=== PATIENT | female | born 1985 ===

== ENCOUNTER 2017-06-30 03:33 | Emergency (ER) | payer MEDICAID ==
[2017-06-30] MEDS ORDERED: Albuterol-Ipratrop 3 mg / 0.5 (3 ml) UD ONE ×3 (03:45→04:09)
--- NOTE | 2017-06-30 03:58 | C.PDOC ---
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 No fever/chills nausea or vomiting. Speaking in complete sentences Time Seen by Provider: 06/30/17 03:58 Chief Complaint (Nursing): Shortness Of Breath History Per: Patient History/Exam Limitations: no limitations Onset/Duration Of Symptoms: Days Current Symptoms Are (Timing): Worse Initiating Event: Upper Respiratory Illness Exacerbating Factor(s): Coughing Current Respiratory Medications: See Home Med List Severity: Severe Pain Scale Rating Of: 7 Associated Symptoms: denies: Fever, Chills, Sweating Recent travel outside of the [place]: No Additional History Per: Patient Past Medical History Reviewed: Historical Data, Nursing Documentation, Vital Signs Vital Signs: Last Vital Signs Temp 97.7 F 06/30/17 05:04 Pulse 61 06/30/17 05:04 Resp 16 06/30/17 05:04 BP 113/74 06/30/17 05:04 Pulse Ox 97 06/30/17 05:34 - Medical History PMH: Asthma Family History: States: No Known Family Hx - Social History Hx Alcohol Use: No Hx Substance Use: No - Immunization History Hx Influenza Vaccination: No Hx Pneumococcal Vaccination: No Review Of Systems Constitutional: Negative for: Fever, Chills Eyes: Negative for: Redness ENT: Negative for: Throat Pain Cardiovascular: Negative for: Chest Pain Respiratory: Positive for: Shortness of Breath, Wheezing Gastrointestinal: Negative for: Nausea, Vomiting, Abdominal Pain Genitourinary: Negative for: Dysuria Musculoskeletal: Negative for: Back Pain Skin: Negative for: Rash, Lesions Neurological: Negative for: Weakness Psych: Negative for: Anxiety Physical Exam - Physical Exam Appears: Non-toxic Skin: Warm, Dry Head: Normacephalic Eye(s): bilateral: Normal Inspection Oral Mucosa: Moist Neck: Supple Chest: Symmetrical Cardiovascular: Rhythm Regular Respiratory: Decreased Breath Sounds, No Rales, No Rhonchi, Wheezing Gastrointestinal/Abdominal: Soft, No Tenderness, No Distention Back: No CVA Tenderness Extremity: Normal ROM Extremity: Bilateral: Atraumatic, Normal Color And Temperature Pulses: Left Dorsalis Pedis: Normal, Right Dorsalis Pedis: Normal Neurological/Psych: Oriented x3, Normal Speech, Normal Cognition Gait: Steady ED Course And Treatment - Laboratory Results Result Diagrams: 06/30/17 04:34 06/30/17 04:34 O2 Sat by Pulse Oximetry: 97 Pulse Ox Interpretation: Normal - Radiology CXR: Interpreted by Me, Viewed By Me CXR Interpretation: No: Infiltrates, Fracture, Pnemothorax Reevaluation Time: 05:52 Reassessment Condition: Improved Critical Care Time - Critical Care Note Total Time (in mins): 30 Documented critical care: time excludes all time spent performing seperately billable procedures. Medical Decision Making Medical Decision Making: Upon provider reevaluation patient is feeling better, is medically stable, and requires no further treatment in the ED at this time. Patient will be discharged home with Rx for prednisone and zithromax . Counseling was provided and all questions were answered regarding diagnosis and need for follow up with the referred clinic. There is agreement to discharge plan. Return if symptoms persist or worsen. Disposition Counseled Patient/Family Regarding: Studies Performed, Diagnosis, Need For Followup, Rx Given - Disposition Referrals: [facility] [Outside] [facility] [Outside] Disposition: HOME/ ROUTINE Disposition Time: 03:58 Condition: FAIR Prescriptions: Azithromycin [Zithromax Tri-Keagan] 500 mg PO DAILY #3 tablet Prednisone [Deltasone] 20 mg PO DAILY #5 tablet Instructions: Asthma (DC) Forms: [facility] (Tamazight) - Clinical Impression Clinical Impression: Asthma exacerbation
[2017-06-30] MEDS ORDERED: Sodium Chloride 0.9% 1,000 ML IV ONE (03:59)
[2017-06-30] MEDS: Albuterol-Ipratrop 3 mg / 0.5 (3 ml) UD IH SCH ×3 (04:00→04:30)
[2017-06-30 04:39] LABS: MEAN CORPUSCULAR HGB CONC 33.3 g/dL (33.0-37.0)
[2017-06-30 04:42] LABS: BASO # 0.1 K/uL (0.0-0.2); BASO % 0.6 % (0.0-2.0); EOS # 0.8 K/uL (0.0-0.7); EOS % 6.7 % (0.0-4.0); LYMPH # 3.8 K/uL (1.0-4.3); LYMPH % 30.6 % (20.0-40.0); MEAN CELL VOLUME 88.1 fL (81.0-99.0); MEAN CORPUSCULAR HEMOGLOBIN 29.4 pg (27.0-31.0); MEAN PLATELET VOLUME 8.7 fL (7.2-11.7); MONO # 0.8 K/uL (0.0-0.8); MONO % 6.6 % (0.0-10.0); RED CELL DISTRIBUTION WIDTH 14.4 % (11.5-14.5); WHITE BLOOD COUNT 12.4 K/uL (4.8-10.8)
[2017-06-30 04:44] LABS: CHLORIDE 104 mmol/L (98-107)
[2017-06-30 04:45] LABS: POTASSIUM 3.3 mmol/L (3.6-5.2); SODIUM 142 mmol/L (132-148)
[2017-06-30 04:47] LABS: ALB/GLOB RATIO 1.1 (1.0-2.1); ALKALINE PHOSPHATASE 46 U/L (38-126); ALT/SGPT 35 U/L (9-52); AST/SGOT 20 U/L (14-36); BILIRUBIN,TOTAL 0.4 mg/dL (0.2-1.3); BLOOD UREA NITROGEN 20 mg/dL (7-17); CARBON DIOXIDE 27 mmol/L (22-30); GFR AFRICAN-AMERICAN > 60; GLUCOSE,RANDOM 121 mg/dL (65-105); TOTAL PROTEIN 6.6 g/dL (6.3-8.3)
[2017-06-30 04:48] LABS: CALCIUM 8.7 mg/dl (8.6-10.4)
[2017-06-30 04:55] LABS: URINE BACTERIA RARE (<OCC); URINE BILIRUBIN NEGATIVE (NEGATIVE); URINE BLOOD NEGATIVE (NEGATIVE); URINE COLOR Red (YELLOW); URINE GLUCOSE (UA) NORMAL (Normal); URINE KETONE NEGATIVE (NEGATIVE); URINE LEUKOCYTE ESTERASE NEG Leu/uL (Negative); URINE PROTEIN NEGATIVE (NEGATIVE); URINE UROBILINOGEN NORMAL mg/dL (0.2-1.0); WBC URINE < 1 /hpf (0-5)
[2017-06-30 05:05] VITALS: RESP 16
[2017-06-30 06:10] VITALS: BP 106/69; PULSE 99; TEMP 98.4; O2SAT 96
--- NOTE | 2017-06-30 15:11 | RAD ---
PROCEDURE: CHEST RADIOGRAPH, 1 VIEW HISTORY: sob COMPARISON: None available. FINDINGS: LUNGS: Clear. PLEURA: No pneumothorax or pleural fluid seen. CARDIOVASCULAR: Normal. OSSEOUS STRUCTURES: No significant abnormalities. VISUALIZED UPPER ABDOMEN: Normal. OTHER FINDINGS: None. IMPRESSION: No active disease.
== END 2017-06-30 06:14 | disposition home or self-care (01) ==
LOC: C.ER 03:33
DX: J45.901 Unspecified asthma with (acute) exacerbation (principal)
CPT/HCPCS: 71010; 80053; 81001; 84703; 85025; 96361; 96374; 99284; J2930; J7040

== ENCOUNTER 2017-09-03 06:43 | Emergency (ER) | payer MEDICAID ==
[2017-09-03] MEDS ORDERED: Albuterol-Ipratrop 3 mg / 0.5 (3 ml) UD ONE ×3 (06:54→06:55)
[2017-09-03] MEDS ORDERED: Albuterol-Ipratrop 3 mg / 0.5 (3 ml) UD INH SCH (07:00)
--- NOTE | 2017-09-03 07:54 | C.PDOC ---
History Of Present Illness 32 Y/O FEMALE PRESENTS TO ED WITH C/O ASTHMA EXACERBATION FOR 3-4 DAYS. PT STATES NORMALLY USES PUMP 1X PER DAY. PT NOTES SHE HAS BEEN USING PUMP AND MACHINE SEVERAL TIMES PER DAY WITH MINIMAL RELIEF. STATES SIMILAOR SYMPTOMS WITH WEATHER CHANGE. DENIES FEVER. C/O CHEST TIGHTNESS, CONGESTION. EXAM SPEAKING IN COMPLETE SENTENCES LUNGS: S/P DUONEB X 3 WITH PERSISTENT RETRACTIONS, AUDIBLE WHEEZING, Time Seen by Provider: 09/03/17 07:31 Chief Complaint (Nursing): Shortness Of Breath History Per: Patient History/Exam Limitations: no limitations Onset/Duration Of Symptoms: Days Current Symptoms Are (Timing): Still Present Associated Symptoms: denies: Fever, Chest Pain, URI Recent travel outside of the [place]: No Past Medical History Reviewed: Historical Data, Nursing Documentation, Vital Signs Vital Signs: Last Vital Signs Temp 97.4 F L 09/03/17 06:52 Pulse 88 09/03/17 06:52 Resp 24 09/03/17 06:52 BP 138/78 09/03/17 06:52 Pulse Ox 96 09/03/17 09:01 - Medical History PMH: Asthma Family History: States: Unknown Family Hx - Social History Hx Alcohol Use: No Hx Substance Use: No - Immunization History Hx Influenza Vaccination: No Hx Pneumococcal Vaccination: No Review Of Systems Except As Marked, All Systems Reviewed And Found Negative. Constitutional: Negative for: Fever, Chills Cardiovascular: Negative for: Chest Pain Respiratory: Positive for: Wheezing Gastrointestinal: Negative for: Nausea, Vomiting, Abdominal Pain Skin: Negative for: Rash Neurological: Negative for: Headache, Dizziness Physical Exam - Physical Exam Appears: Non-toxic, No Acute Distress, Other (SPEAKING IN COMPLETE SENTENCES) Skin: Normal Color, Warm, Dry Head: Atraumatic, Normacephalic Oral Mucosa: Moist Chest: Symmetrical Cardiovascular: Rhythm Regular Respiratory: Accessory Muscle Use, No Rales, No Rhonchi, Wheezing (AUDIBLE WHEEZING) Gastrointestinal/Abdominal: Soft, No Tenderness, No Guarding, No Rebound Back: Normal Inspection Extremity: Normal ROM, No Pedal Edema, Capillary Refill (< 2 SEC.) Neurological/Psych: Oriented x3, Normal Speech, Normal Cognition ED Course And Treatment O2 Sat by Pulse Oximetry: 96 (RA) Pulse Ox Interpretation: Normal - Radiology CXR: Interpreted by Me CXR Interpretation: Yes: No Acute Disease Progress - Re-Evaluation Re-evaluation Note: 09/03/17 07:59 CXR, PREDNISONE ORDERED 09/03/17 09:26 FEELS BETTER. REQUESTS MED REFILL, DC HOME - Data Reviewed Data Reviewed: Diagnostic imaging, Old records Disposition Counseled Patient/Family Regarding: Studies Performed, Diagnosis, Need For Followup, Rx Given - Disposition Referrals: YOUR,PMD [Other] Disposition: HOME/ ROUTINE Disposition Time: 09:27 Condition: IMPROVED Prescriptions: Albuterol 0.083% [Albuterol Sulfate 3 Ml] 3 ml IH Q4 #30 neb Albuterol HFA [Ventolin HFA 90 mcg/actuation (8 g)] 1 puff IH Q4 #1 inhaler predniSONE [Prednisone] 60 mg PO DAILY #12 tab Forms: [employer] (Swedish) - Clinical Impression Clinical Impression: Asthma exacerbation - Scribe Statement The provider has reviewed the documentation as recorded by the Scribe SM All medical record entries made by the Scribe were at my direction and personally dictated by me. I have reviewed the chart and agree that the record accurately reflects my personal performance of the history, physical exam, medical decision making, and the department course for this patient. I have also personally directed, reviewed, and agree with the discharge instructions and disposition.
--- NOTE | 2017-09-03 08:11 | RAD ---
HISTORY: WHEEZE COMPARISON: 06/30/2017 TECHNIQUE: Chest PA and lateral FINDINGS: LUNGS: No active pulmonary disease. PLEURA: No significant pleural effusion identified. No pneumothorax apparent. CARDIOVASCULAR: Normal. OSSEOUS STRUCTURES: No significant abnormalities. VISUALIZED UPPER ABDOMEN: Normal. OTHER FINDINGS: None. IMPRESSION: No active disease.
[2017-09-03 09:43] VITALS: BP 131/82; PULSE 89; RESP 19; TEMP 98.6; O2SAT 98
== END 2017-09-03 09:42 | disposition home or self-care (01) ==
LOC: C.ER 06:43
DX: J45.901 Unspecified asthma with (acute) exacerbation (principal); Z87.891 Personal history of nicotine dependence

== ENCOUNTER 2017-11-07 05:49 | Emergency (ER) | payer MEDICAID ==
[~2017-11-07 05:49] MED LIST: Albuterol-Ipratrop 3 mg / 0.5 (3 ml) UD INH STA
[2017-11-07] MEDS ORDERED: Albuterol-Ipratrop 3 mg / 0.5 (3 ml) UD ONE ×2 (05:53→06:36)
[2017-11-07] MEDS ORDERED: Albuterol-Ipratrop 3 mg / 0.5 (3 ml) UD INH STA ×4 (06:00→06:46)
[2017-11-07 06:06] VITALS: BMI 44.9
--- NOTE | 2017-11-07 06:18 | C.PDOC ---
History Of Present Illness Patient is a 32 y/o female who presents to the ED with a complaint of asthma exacerbation. Patient reports to have been taking albuterol at home with no improvement; last steroid use a few months ago. Admits to quit smoking 5 years ago. Denies ever being intubated. Patient notes change in weather may be cause of symptoms. No other physical complaints at this time. Time Seen by Provider: 11/07/17 06:04 Chief Complaint (Nursing): Shortness Of Breath History Per: Patient History/Exam Limitations: no limitations Onset/Duration Of Symptoms: Days Current Symptoms Are (Timing): Still Present Initiating Event: Upper Respiratory Illness Current Respiratory Medications: Albuterol (without improvement) Associated Symptoms: Chest Pain Recent travel outside of the [place]: No Past Medical History Reviewed: Historical Data, Nursing Documentation, Vital Signs Vital Signs: Last Vital Signs Temp 97.9 F 11/07/17 05:57 Pulse 106 H 11/07/17 06:53 Resp 28 H 11/07/17 06:53 BP 128/62 11/07/17 06:53 Pulse Ox 96 11/07/17 06:53 - Medical History PMH: Asthma Surgical History: No Surg Hx Family History: States: Unknown Family Hx - Social History Hx Tobacco Use: Yes (quit smoking 5 years ago) Hx Alcohol Use: No Hx Substance Use: No - Immunization History Hx Influenza Vaccination: No Hx Pneumococcal Vaccination: No Review Of Systems Constitutional: Negative for: Fever Eyes: Negative for: Pain ENT: Positive for: Ear Pain. Negative for: Ear Discharge Cardiovascular: Negative for: Chest Pain Respiratory: Positive for: Cough, Shortness of Breath, Other (asthma exacerbation). Negative for: SOB with Excertion, Pleuritic Pain, Sputum Gastrointestinal: Negative for: Nausea, Vomiting, Abdominal Pain, Diarrhea Genitourinary: Negative for: Dysuria Musculoskeletal: Negative for: Neck Pain Neurological: Negative for: Weakness, Numbness Psych: Negative for: Anxiety, Depression Physical Exam - Physical Exam Appears: Well, Non-toxic, No Acute Distress Skin: Normal Color, Warm, Dry Head: Atraumatic, Normacephalic Oral Mucosa: Moist Tongue: Normal Appearing Lips: Normal Appearing Gingiva: Normal Appearing Throat: Normal Neck: Normal Chest: Symmetrical Cardiovascular: Rhythm Regular, No Murmur Respiratory: No Accessory Muscle Use, No Rales, No Rhonchi, Wheezing (coarse, expiratory ), Other (speaking in complete sentences) Neurological/Psych: Oriented x3, Normal Speech, Normal Cognition ED Course And Treatment ECG: Interpreted By Me, Viewed By Me ECG Rhythm: Sinus Tachycardia Rate From EC O2 Sat by Pulse Oximetry: 99 (room air) Pulse Ox Interpretation: Normal Progress Note: Duoneb, prednisone, and nebulizer treatment administered. Medical Decision Making Medical Decision Making: acute moderate asthma exacerbation with diffuse expiratory wheezing. PF 350. predisone 60 mg po ordered. Multiple duonebs. Disposition - Disposition Disposition Time: 07:23 Condition: FAIR Forms: [employer] (Macedonian) - Clinical Impression Clinical Impression: Dyspnea, Respiratory distress, Asthma - Scribe Statement The provider has reviewed the documentation as recorded by the Scribe Little Amin All medical record entries made by the Scribe were at my direction and personally dictated by me. I have reviewed the chart and agree that the record accurately reflects my personal performance of the history, physical exam, medical decision making, and the department course for this patient. I have also personally directed, reviewed, and agree with the discharge instructions and disposition.
[2017-11-07 06:54] VITALS: PULSE 106
[2017-11-07] MEDS ORDERED: Albuterol 0.083% Inhal Sol (2.5 mg/3 mL) UD IH STA (08:12)
[2017-11-07] MEDS ORDERED: Albuterol 0.083% Inhal Sol (2.5 mg/3 mL) UD ONE (08:19)
[2017-11-07 09:09] VITALS: BP 122/57; RESP 22; TEMP 98.9; O2SAT 97
== END 2017-11-07 09:31 | disposition home or self-care (01) ==
LOC: C.ER 05:49
DX: J45.901 Unspecified asthma with (acute) exacerbation (principal); R06.03 Acute respiratory distress; Z87.891 Personal history of nicotine dependence

== ENCOUNTER 2017-11-29 00:06 | Emergency (ER) | payer MEDICAID ==
[2017-11-29 00:06] VITALS: BMI 44.9
[2017-11-29 00:22] VITALS: TEMP 98.3
[2017-11-29] MEDS: Albuterol-Ipratrop 3 mg / 0.5 (3 ml) UD IH SCH ×2 (01:15→01:30)
--- NOTE | 2017-11-29 02:29 | C.PDOC ---
History Of Present Illness 32 year old female presents to the ER after she was bathing her dog with a new shampoo and the aroma of it triggered her asthma, she states she was unable to breathe and called 911. Patient was given IV solumedrol and mag sulfate, brethine SQ and 1 duoneb by EMS. On arrival, patient reports some improvement of symptoms but still feels some chest tightness. Denies fever, chills, or chest pain. Time Seen by Provider: 11/29/17 00:49 Chief Complaint (Nursing): Respiratory Distress History Per: Patient History/Exam Limitations: no limitations Onset/Duration Of Symptoms: Hrs Current Symptoms Are (Timing): Still Present Initiating Event: Other (Exposure to new aroma) Quality: Tightness Current Respiratory Medications: None Associated Symptoms: denies: Fever, Chills, Chest Pain Recent travel outside of the [place]: No Past Medical History Reviewed: Historical Data, Nursing Documentation, Vital Signs Vital Signs: Last Vital Signs Temp 98.3 F 11/29/17 00:12 Pulse 90 11/29/17 02:51 Resp 16 11/29/17 02:51 BP 115/72 11/29/17 02:51 Pulse Ox 100 11/29/17 05:23 - Medical History PMH: Asthma Family History: States: Unknown Family Hx - Social History Hx Tobacco Use: Yes (quit smoking 5 years ago) Hx Alcohol Use: Yes Hx Substance Use: No - Immunization History Hx Influenza Vaccination: No Hx Pneumococcal Vaccination: No Review Of Systems Constitutional: Negative for: Fever, Chills Cardiovascular: Negative for: Chest Pain, Palpitations Respiratory: Positive for: Shortness of Breath, Other (Chest tightness) Physical Exam - Physical Exam Appears: Non-toxic, No Acute Distress Skin: Normal Color, Warm, Dry Head: Atraumatic, Normacephalic Eye(s): bilateral: Normal Inspection Oral Mucosa: Moist Throat: Normal, No Erythema, No Exudate Neck: Normal, Supple Chest: Symmetrical, No Tenderness Cardiovascular: Rhythm Regular Respiratory: No Rales, No Rhonchi, Wheezing (Expiratory), Other (Minimally decreased breath sounds) Neurological/Psych: Oriented x3, Normal Speech ED Course And Treatment O2 Sat by Pulse Oximetry: 100 (Room air) Pulse Ox Interpretation: Normal Progress Note: Duoneb administered. On reevaluation, patient is resting comfortably in no distress and reports improvement of symptoms; she is no longer wheezing and feels comfortable going home. Will discharge home with Rx and instructions to follow up with PMD. Disposition Counseled Patient/Family Regarding: Diagnosis, Need For Followup, Rx Given - Disposition Disposition: HOME/ ROUTINE Disposition Time: 02:26 Condition: STABLE Additional Instructions: Please continue albuterol inhaler as needed for difficulty breathing Follow up jero PMD Return to ER if worse Prescriptions: Albuterol HFA [Ventolin HFA 90 mcg/actuation (8 g)] 2 puff IH [id number] #1 inhaler predniSONE [Prednisone] 40 mg PO DAILY #8 tab Instructions: Bronchospasm (ED) Forms: [employer] (Cuban) - Clinical Impression Clinical Impression: Exacerbation of asthma, Bronchospasm, acute - PA / WELLNESS MANAGER / Resident Statement MD/DO has reviewed & agrees with the documentation as recorded. - Scribe Statement The provider has reviewed the documentation as recorded by the Scribe Carlos Pfeiffer All medical record entries made by the Scribe were at my direction and personally dictated by me. I have reviewed the chart and agree that the record accurately reflects my personal performance of the history, physical exam, medical decision making, and the department course for this patient. I have also personally directed, reviewed, and agree with the discharge instructions and disposition.
[2017-11-29 02:53] VITALS: BP 115/72; PULSE 90; RESP 16
[2017-11-29 05:18] VITALS: O2SAT 100
== END 2017-11-29 02:52 | disposition home or self-care (01) ==
LOC: C.ER 00:06
DX: J45.901 Unspecified asthma with (acute) exacerbation (principal); J98.01 Acute bronchospasm; Z87.891 Personal history of nicotine dependence

== ENCOUNTER 2018-02-05 21:31 | Inpatient (IN) | payer MEDICAID ==
[2018-02-05 21:31] VITALS: BMI 44.9
[2018-02-05] MEDS ORDERED: Albuterol-Ipratrop 3 mg / 0.5 (3 ml) UD ONE ×3 (21:36→23:31)
[2018-02-05] MEDS ORDERED: Albuterol-Ipratrop 3 mg / 0.5 (3 ml) UD INH STA ×3 (21:47→23:32)
--- NOTE | 2018-02-05 21:51 | C.PDOC ---
History Of Present Illness 32 year old female is brought to the ED by ACLS for evaluation of worsening asthma that started earlier today. Patient was given medications and breathing treatments en route [employer]. Patient denies fever, chills, CP, nausea, vomit, diarrhea. Time Seen by Provider: 02/05/18 21:50 Chief Complaint (Nursing): Respiratory Distress History Per: Patient, EMS History/Exam Limitations: no limitations Onset/Duration Of Symptoms: Days Current Symptoms Are (Timing): Gone Initiating Event: Upper Respiratory Illness Quality: Tightness Current Respiratory Medications: See Home Med List Recent travel outside of the [place]: No Additional History Per: Patient, EMS Past Medical History Reviewed: Historical Data, Nursing Documentation, Vital Signs Vital Signs: Last Vital Signs Temp 98 F 02/05/18 21:35 Pulse 102 H 02/05/18 23:46 Resp 22 02/05/18 23:46 BP 153/78 H 02/05/18 21:35 Pulse Ox 100 02/05/18 23:46 - Medical History PMH: Asthma Surgical History: No Surg Hx Family History: States: Unknown Family Hx - Social History Hx Tobacco Use: Yes (quit smoking 5 years ago) Hx Alcohol Use: Yes Hx Substance Use: No - Immunization History Hx Influenza Vaccination: No Hx Pneumococcal Vaccination: No Review Of Systems Constitutional: Negative for: Fever, Chills Cardiovascular: Negative for: Chest Pain Respiratory: Positive for: Shortness of Breath, Wheezing. Negative for: Cough Gastrointestinal: Negative for: Nausea, Vomiting, Abdominal Pain Skin: Negative for: Rash Neurological: Negative for: Weakness, Numbness Physical Exam - Physical Exam Appears: Non-toxic, No Acute Distress Skin: Normal Color, Warm, Dry Head: Atraumatic, Normacephalic Eye(s): bilateral: Normal Inspection Nose: No Discharge Oral Mucosa: Moist Throat: Normal, No Erythema, No Exudate Neck: Normal ROM, Supple Chest: Symmetrical Cardiovascular: Rhythm Regular, No Murmur Respiratory: Rhonchi (B/L), Wheezing (B/L), Other (Dyspnic) Gastrointestinal/Abdominal: Soft, No Tenderness, No Guarding, No Rebound Extremity: Normal ROM, No Tenderness, No Swelling Neurological/Psych: Oriented x3 ED Course And Treatment - Laboratory Results Result Diagrams: 02/05/18 22:00 02/05/18 22:00 ECG: Interpreted By Me, Viewed By Me ECG Rhythm: Sinus Tachycardia ECG Interpretation: No Acute Changes Interpretation Of ECG: sinus tachycardia, possible LAE, bordereline tacings Rate From EC O2 Sat by Pulse Oximetry: 99 (On RA) Pulse Ox Interpretation: Normal - Radiology CXR: Interpreted by Me, Viewed By Me CXR Interpretation: Yes: Other (possible infiltrate-Right lower lung field.) Medical Decision Making Medical Decision Making: Impression: asthma exacerbation Plan: * EKG * Labs * CXR * Duoneb 3 ml INH Disposition Discussed With Dr.: Matthew Oliveira Jr. Doctor Will See Patient In The: Hospital Counseled Patient/Family Regarding: Diagnosis - Disposition Disposition: HOSPITALIZED Disposition Time: 02:10 Condition: STABLE Forms: [facility] (Lithuanian) - POA Present On Arrival: None - Clinical Impression Clinical Impression: Asthma exacerbation, Pneumonia - Scribe Statement The provider has reviewed the documentation as recorded by the Scribe Gilbert Lopes All medical record entries made by the Scribe were at my direction and personally dictated by me. I have reviewed the chart and agree that the record accurately reflects my personal performance of the history, physical exam, medical decision making, and the department course for this patient. I have also personally directed, reviewed, and agree with the discharge instructions and disposition.
[2018-02-05 22:02] LABS: BASO # 0.1 K/uL (0.0-0.2); BASO % 0.7 % (0.0-2.0); EOS # 0.7 K/uL (0.0-0.7); HEMOGLOBIN 13.8 g/dL (11.0-16.0); LYMPH # 5.1 K/uL (1.0-4.3); LYMPH % 34.1 % (20.0-40.0); MEAN CORPUSCULAR HEMOGLOBIN 29.5 pg (27.0-31.0); MEAN CORPUSCULAR HGB CONC 32.4 g/dL (33.0-37.0); MEAN PLATELET VOLUME 8.2 fL (7.2-11.7); MONO # 0.9 K/uL (0.0-0.8); NEUT # 8.1 K/uL (1.8-7.0); NEUT % 54.2 % (50.0-75.0); NRBC % 0.1 % (0.0-2.0); RBC 4.67 Mil/uL (3.80-5.20); RED CELL DISTRIBUTION WIDTH 13.9 % (11.5-14.5)
[2018-02-05 22:04] LABS: MEAN CELL VOLUME 91.2 fL (81.0-99.0)
[2018-02-05 22:16] LABS: ALBUMIN 3.8 g/dL (3.5-5.0); ALT/SGPT 29 U/L (9-52); AST/SGOT 25 U/L (14-36); BLOOD UREA NITROGEN 12 mg/dL (7-17); CALCIUM 8.1 mg/dl (8.6-10.4); GFR AFRICAN-AMERICAN > 60; GFR NON-AFRICAN AMERICAN > 60
[2018-02-05 22:43] LABS: B-TYPE NATRIURETIC PEPTIDE 35.1 pg/mL (0-450)
[2018-02-05] MEDS ORDERED: Azithromycin 500 MG in Sodium Chloride 0.9% 250 ML IVPB STA (22:44)
[2018-02-05] MEDS ORDERED: cefTRIAXone IV 1 gm in Dextros 50 ML IVPB ONE ×2 (22:45→23:09)
[2018-02-06] MEDS ORDERED: (Novolin R) Insulin Human Regular 100 units/ml vial IV STA (00:46)
[2018-02-06] MEDS ORDERED: Iodixanol 320 MG/ML 100 ML BOTTLE IV ONE (00:49)
--- NOTE | 2018-02-06 02:03 | CT ---
EXAM: CT Angiography Chest With Intravenous Contrast EXAM DATE/TIME: 02/06/2018 1:07 AM CLINICAL HISTORY: 32 years old, female; Pain; Chest pain; Patient HX: Ho. Asthma TECHNIQUE: Axial computed tomographic angiography images of the chest with intravenous contrast using pulmonary embolism protocol. All CT scans at this facility use one or more dose reduction techniques, viz.: automated exposure control; ma/kV adjustment per patient size (including targeted exams where dose is matched to indication; i.e. head); or iterative reconstruction technique. MIP reconstructed images were created and reviewed. Coronal and sagittal reformatted images were created and reviewed. CONTRAST: 100 mL of [id number] administered intravenously. COMPARISON: CT - ANGIO CHEST PE PROTOCOL 2018-02-05 23:42 FINDINGS: No pulmonary emboli identified however bolus findings suboptimal significantly limiting evaluation.. No aortic dissection or aneurysm. No pleural or pericardial effussions. No pulmonary consolidation. IMPRESSION: No acute findings however please note bolus timing is suboptimal for evaluation of the pulmonary arteries.
--- NOTE | 2018-02-06 02:21 | CP.PCM.HP ---
History of Present Illness - History of Present Illness History of Present Illness: CC: worsening asthma/ SOB HPI: Patient is a 32 y/o F with PMHx of asthma who presents today for shortness of breath and worsening asthma. About 3 days ago patient said she started getting congested with yellow sputum. Patient had no fevers or sore throat. Patient had to increase her use of Albuterol nebulizer treatments. Today patient used her Ventolin inhaler 9 times and could not get full relief so she decided to come to the ED. Patient has never been intubated for asthma. Patient uses her inhaler normally every day and coughs most nights. Patient denies any chest pain, abdominal pain, N/V, C/D. PMD: Dr. Koch Allergies: NKDA PMHx:asthma Psurg: IUD Famhx: Mom: HTN, Grandmother: Alzheimer's Psocial: stopped smoking cigarettes 7 years ago, smoked 1/2ppd for 10 years, drinks a few drinks every few months, stopped smoking marijuana 3 years ago lives with 2 roommates. works at a [employer] Present on Admission - Present on Admission Any Indicators Present on Admission: No History of DVT/PE: No History of Uncontrolled Diabetes: No Urinary Catheter: No Decubitus Ulcer Present: No Review of Systems - Constitutional Constitutional: absent: Chills, Fever - EENT Eyes: absent: Blurred Vision Nose/Mouth/Throat: Nasal Congestion, Nasal Discharge. absent: Sore Throat - Cardiovascular Cardiovascular: Dyspnea. absent: Chest Pain - Respiratory Respiratory: Cough, Wheezing, Excessive Mucous Production, Change in Mucous Color - Gastrointestinal Gastrointestinal: absent: Abdominal Pain, Constipation, Diarrhea, Nausea, Vomiting - Genitourinary Genitourinary: absent: Difficulty Urinating, Dysuria - Integumentary Integumentary: absent: Rash Past Patient History - Past Social History Smoking Status: Former Smoker - CARDIAC Hx Cardiac Disorders: No - PULMONARY Hx Asthma: Yes - PSYCHIATRIC Hx Substance Use: No - SURGICAL HISTORY Hx Surgeries: No - ANESTHESIA Hx Anesthesia: No Meds Allergies/Adverse Reactions: Allergies Allergy/AdvReac Type Severity Reaction Status Date / Time No Known Allergies Allergy Verified 11/29/17 00:22 Physical Exam - Constitutional Appears: Non-toxic, No Acute Distress - Head Exam Head Exam: ATRAUMATIC, NORMAL INSPECTION, NORMOCEPHALIC - Eye Exam Eye Exam: EOMI, Normal appearance - ENT Exam ENT Exam: Mucous Membranes Moist - Respiratory Exam Respiratory Exam: Wheezes - Cardiovascular Exam Cardiovascular Exam: Tachycardia, REGULAR RHYTHM, +S1, +S2 - GI/Abdominal Exam GI & Abdominal Exam: Normal Bowel Sounds, Soft. absent: Tenderness - Extremities Exam Extremities exam: Positive for: normal inspection. Negative for: pedal edema - Back Exam Back exam: NORMAL INSPECTION - Neurological Exam Neurological exam: Alert, Oriented x3 - Psychiatric Exam Psychiatric exam: Normal Affect, Normal Mood - Skin Skin Exam: Intact, Normal Color, Warm Results - Vital Signs Recent Vital Signs: Last Vital Signs Temp 98 F 02/05/18 21:35 Pulse 102 H 02/05/18 23:46 Resp 22 02/05/18 23:46 BP 153/78 H 02/05/18 21:35 Pulse Ox 99 02/06/18 02:11 - Labs Result Diagrams: 02/05/18 22:00 02/05/18 22:00 Labs: Laboratory Results - last 24 hr 02/05/18 02/05/18 02/05/18 22:00 22:00 22:00 WBC 15.0 H RBC 4.67 Hgb 13.8 Hct 42.6 MCV 91.2 D MCH 29.5 MCHC 32.4 L RDW 13.9 Plt Count 311 MPV 8.2 Neut % (Auto) 54.2 Lymph % (Auto) 34.1 [place] % (Auto) 6.0 Eos % (Auto) 5.0 H Baso % (Auto) 0.7 Neut # (Auto) 8.1 H Lymph # (Auto) 5.1 H [place] # (Auto) 0.9 H Eos # (Auto) 0.7 Baso # (Auto) 0.1 D-Dimer, Quantitative 313 H Sodium 140 Potassium 3.4 L Chloride 104 Carbon Dioxide 24 Anion Gap 16 BUN 12 Creatinine 1.0 Est GFR ( Amer) > 60 Est GFR (Non-Af Amer) > 60 Random Glucose 133 H Calcium 8.1 L Total Bilirubin 0.4 AST 25 ALT 29 Alkaline Phosphatase 43 NT-Pro-B Natriuret Pep 35.1 Total Protein 7.5 Albumin 3.8 Globulin 3.7 Albumin/Globulin Ratio 1.0 Assessment & Plan - Assessment and Plan (Free Text) Assessment: Asthma exacerbation CTA: no acute findings however please note bolus timing is suboptimal for evaluation of the pulmonary arteries. D-Dimer 313 Duonebs q4h prn Solumedrol 40mg q8h Leukocytosis WBC:15 possibly secondary to Left lower lobe pneumonia f/u official cxray read Ceftriaxone 1gm daily Azithromycin 500mg daily Prophylaxis Pepcid 20mg po daily SCDs
[2018-02-06] MEDS ORDERED: Albuterol-Ipratrop 3 mg / 0.5 (3 ml) UD INH PRN (02:52)
[2018-02-06 03:07] LABS: GRANULAR CAST 5 /lpf (0-1); SQUAMOUS EPITHIAL 46 /hpf (0-5); URINE BACTERIA FEW (<OCC); URINE BILIRUBIN NEGATIVE (NEGATIVE); URINE BLOOD NEGATIVE (NEGATIVE); URINE CLARITY Turbid (Clear); URINE COLOR Yellow (YELLOW); URINE GLUCOSE (UA) NORMAL (Normal); URINE LEUKOCYTE ESTERASE NEG Leu/uL (Negative); URINE PROTEIN 1+ mg/dL (NEGATIVE); URINE UROBILINOGEN NORMAL mg/dL (0.2-1.0)
[2018-02-06 03:11] LABS: HCG,QUALITATIVE URINE NEGATIVE (NEGATIVE)
[2018-02-06] MEDS ORDERED: MethylPREDNISolone 40 mg Vial ONE (03:30)
[2018-02-06] MEDS: MethylPREDNISolone 40 mg Vial IVP SCH ×4 (03:39→19:00)
[2018-02-06] MEDS ORDERED: Potassium Chloride 20 mEq ER Tab PO ONE (03:57)
[2018-02-06 04:15] LABS: BASO % 0.1 % (0.0-2.0); EOS % 0.1 % (0.0-4.0); HEMOGLOBIN 13.7 g/dL (11.0-16.0); LYMPH # 0.7 K/uL (1.0-4.3); LYMPH % 4.4 % (20.0-40.0); MEAN CELL VOLUME 91.6 fL (81.0-99.0); MEAN CORPUSCULAR HEMOGLOBIN 30.4 pg (27.0-31.0); MEAN CORPUSCULAR HGB CONC 33.2 g/dL (33.0-37.0); MEAN PLATELET VOLUME 8.8 fL (7.2-11.7); MONO # 0.1 K/uL (0.0-0.8); MONO % 0.6 % (0.0-10.0); NEUT # 14.4 K/uL (1.8-7.0); NEUT % 94.8 % (50.0-75.0); PLATELET COUNT 277 K/uL (130-400); RBC 4.48 Mil/uL (3.80-5.20); RED CELL DISTRIBUTION WIDTH 13.9 % (11.5-14.5); WHITE BLOOD COUNT 15.2 K/uL (4.8-10.8)
[2018-02-06 04:26] LABS: BLOOD UREA NITROGEN 12 mg/dL (7-17); GFR AFRICAN-AMERICAN > 60; GFR NON-AFRICAN AMERICAN > 60
[2018-02-06 04:27] LABS: ALB/GLOB RATIO 1.2 (1.0-2.1); ALBUMIN 3.8 g/dL (3.5-5.0); ALT/SGPT 21 U/L (9-52); AST/SGOT 25 U/L (14-36); CALCIUM 7.5 mg/dl (8.6-10.4)
[2018-02-06 05:09] VITALS: RESP 20
[2018-02-06 06:23] LABS: LYMPHOCYTE 7 % (20-40); MONOCYTE 2 % (0-10); NEUTROPHIL 91 % (50-75); PLATELET ESTIMATE NORMAL (NORMAL); TOTAL CELLS COUNTED 100
--- NOTE | 2018-02-06 07:57 | CP.PCM.PN ---
<DavidKristi - Last Filed: 02/06/18 16:34> Subjective - Date & Time of Evaluation Date of Evaluation: 02/06/18 Time of Evaluation: 07:56 - Subjective Subjective: Progress note for Dr. Oliveira Patient seen and examined at bedside. Patient states she feels better than yesterday. Patient still has a cough and states that she did not ask for breathing treatment this morning. Objective - Vital Signs/Intake and Output Vital Signs (last 24 hours): Temp Pulse Resp BP Pulse Ox 98.3 F 20 L 20 132/67 100 02/06/18 03:50 02/06/18 04:00 02/06/18 04:00 02/06/18 02:32 02/06/18 04:00 Intake and Output: 02/06/18 02/06/18 06:59 18:59 Intake Total 300 Balance 300 - Medications Medications: Current Medications Albuterol/Ipratropium (Duoneb 3 Mg/0.5 Mg (3 Ml) Ud) 3 ml INH RQ4 PRN PRN Reason: Wheezing Famotidine (Pepcid) 20 mg PO DAILY MARY Azithromycin (Zithromax 500mg In Ns Addvantage) 500 mg in 250 mls @ 167 mls/hr IVPB Q24H MARY PRN Reason: Protocol Ceftriaxone Sodium (Rocephin Iv 1 Gm Duplex) 50 mls @ 100 mls/hr IVPB DAILY MARY PRN Reason: Protocol Methylprednisolone (Solu-Medrol) 40 mg IVP Q8H MARY Last Admin: 02/06/18 03:39 Dose: 40 mg - Labs Labs: 02/06/18 04:12 02/06/18 03:38 - Constitutional Appears: Non-toxic, No Acute Distress - Head Exam Head Exam: ATRAUMATIC, NORMAL INSPECTION, NORMOCEPHALIC - Eye Exam Eye Exam: EOMI, Normal appearance Pupil Exam: NORMAL ACCOMODATION, PERRL - ENT Exam ENT Exam: Mucous Membranes Moist, Normal Exam - Neck Exam Neck Exam: Full ROM, Normal Inspection - Respiratory Exam Respiratory Exam: Clear to Ausculation Bilateral, NORMAL BREATHING PATTERN. absent: Decreased Breath Sounds, Respiratory Distress - Cardiovascular Exam Cardiovascular Exam: REGULAR RHYTHM, +S1, +S2 - GI/Abdominal Exam GI & Abdominal Exam: Soft, Normal Bowel Sounds. absent: Tenderness - Extremities Exam Extremities Exam: Full ROM, Normal Inspection. absent: Pedal Edema - Back Exam Back Exam: Full ROM, NORMAL INSPECTION - Neurological Exam Neurological Exam: Alert, Awake, CN II-XII Intact, Oriented x3 - Psychiatric Exam Psychiatric exam: Normal Affect - Skin Skin Exam: Dry, Intact, Normal Color, Warm Assessment and Plan - Assessment and Plan (Free Text) Assessment: 32F with past medical history of asthma presents with shortness of breath with productive cough. Asthma exacerbation CTA: no acute findings however please note bolus timing is suboptimal for evaluation of the pulmonary arteries. D-Dimer 313 Duonebs q4h prn, duonebs q4h MARY alternating Solumedrol 40mg q8h Leukocytosis WBC:15.2 possibly secondary to Left lower lobe pneumonia CXR Ceftriaxone 1gm daily Azithromycin 500mg daily Prophylaxis Pepcid 20mg po daily SCDs headache: reglan 10 mv IV once pain: tylenol 650Q6H Kristi Hernandez DO PGY1 <Matthew Oliveira Jr. - Last Filed: 02/10/18 15:47> Objective - Vital Signs/Intake and Output Vital Signs (last 24 hours): Temp Pulse Resp BP Pulse Ox 98.2 F 91 H 20 130/83 97 02/07/18 07:46 02/07/18 07:46 02/07/18 07:46 02/07/18 07:46 02/07/18 07:46 - Labs Labs: 02/07/18 07:34 02/07/18 07:34 Attending/Attestation - Attestation I have personally seen and examined this patient.: Yes I have fully participated in the care of the patient.: Yes I have reviewed all pertinent clinical information, including history, physical exam and plan: Yes Notes (Text): 02/10/18 15:47 Agree with resident note and plan of care
--- NOTE | 2018-02-06 07:59 | RAD ---
HISTORY: SOB COMPARISON: Chest x-ray 09/03/2017 TECHNIQUE: Chest PA and lateral FINDINGS: LUNGS: No focal consolidation is seen. PLEURA: No pleural effusion is identified. CARDIOVASCULAR: Heart size is within normal limits. OSSEOUS STRUCTURES: No acute fracture identified. VISUALIZED UPPER ABDOMEN: Unremarkable. OTHER FINDINGS: None. IMPRESSION: No acute cardiopulmonary process seen.
[2018-02-06] MEDS: cefTRIAXone IV 1 gm in Dextros 50 ML IVPB SCH (09:32)
[2018-02-06] MEDS ORDERED: Azithromycin 500 MG in Sodium Chloride 0.9% 250 ML IVPB SCH (23:00)
[2018-02-07] MEDS: MethylPREDNISolone 40 mg Vial IVP SCH ×2 (03:40→11:26)
[2018-02-07] MEDS ORDERED: Albuterol-Ipratrop 3 mg / 0.5 (3 ml) UD INH SCH (04:00)
[2018-02-07] MEDS: Albuterol-Ipratrop 3 mg / 0.5 (3 ml) UD INH SCH ×5 (04:03→15:28)
[2018-02-07 07:47] VITALS: BP 130/83; PULSE 91; TEMP 98.2; O2SAT 97
[2018-02-07 07:47] LABS: BASO % 0.1 % (0.0-2.0); HEMOGLOBIN 13.2 g/dL (11.0-16.0); LYMPH # 1.1 K/uL (1.0-4.3); LYMPH % 5.6 % (20.0-40.0); MEAN CELL VOLUME 91.3 fL (81.0-99.0); MEAN CORPUSCULAR HEMOGLOBIN 30.5 pg (27.0-31.0); MEAN CORPUSCULAR HGB CONC 33.5 g/dL (33.0-37.0); MEAN PLATELET VOLUME 9.1 fL (7.2-11.7); MONO # 0.3 K/uL (0.0-0.8); MONO % 1.6 % (0.0-10.0); NEUT # 17.5 K/uL (1.8-7.0); NEUT % 92.7 % (50.0-75.0); PLATELET COUNT 304 K/uL (130-400); RBC 4.33 Mil/uL (3.80-5.20); WHITE BLOOD COUNT 18.9 K/uL (4.8-10.8)
[2018-02-07] MEDS ORDERED: Fluticasone-Salmeterol 250-50mcg Diskus INH SCH (08:00)
[2018-02-07 08:08] LABS: ALBUMIN 3.7 g/dL (3.5-5.0); ALT/SGPT 21 U/L (9-52); AST/SGOT 21 U/L (14-36); BLOOD UREA NITROGEN 16 mg/dL (7-17); CALCIUM 8.4 mg/dl (8.6-10.4); GFR AFRICAN-AMERICAN > 60; GFR NON-AFRICAN AMERICAN > 60
[2018-02-07 08:54] LABS: LYMPHOCYTE 3 % (20-40); MONOCYTE 1 % (0-10); NEUTROPHIL 96 % (50-75); PLATELET ESTIMATE NORMAL (NORMAL); TOTAL CELLS COUNTED 100
[2018-02-07] MEDS: cefTRIAXone IV 1 gm in Dextros 50 ML IVPB SCH (09:22)
--- NOTE | 2018-02-07 10:05 | CARD ---
APPROVED REPORT EKG Measurement Heart [id number] <Conclusion> Sinus tachycardia Possible Left atrial enlargement Borderline ECG
--- NOTE | 2018-02-07 13:35 | CP.PCM.DIS ---
Provider - Provider Date of Admission: 02/06/18 02:11 Attending physician: Matthew Oliveira Jr, MD Primary care physician: Dr. Koch Time Spent in preparation of Discharge (in minutes): 45 Hospital Course - Lab Results Lab Results: Micro Results 02/05/18 23:10 Blood Blood Culture - Preliminary NO GROWTH AFTER 24 HOURS 02/05/18 22:45 Blood Blood Culture - Preliminary NO GROWTH AFTER 24 HOURS Most Recent Lab Values WBC 18.9 K/uL (4.8-10.8) H 02/07/18 07:34 RBC 4.33 Mil/uL (3.80-5.20) 02/07/18 07:34 Hgb 13.2 g/dL (11.0-16.0) 02/07/18 07:34 Hct 39.5 % (34.0-47.0) 02/07/18 07:34 MCV 91.3 fL (81.0-99.0) 02/07/18 07:34 MCH 30.5 pg (27.0-31.0) 02/07/18 07:34 MCHC 33.5 g/dL (33.0-37.0) 02/07/18 07:34 RDW 14.0 % (11.5-14.5) 02/07/18 07:34 Plt Count 304 K/uL (130-400) 02/07/18 07:34 MPV 9.1 fL (7.2-11.7) 02/07/18 07:34 Neut % (Auto) 92.7 % (50.0-75.0) H 02/07/18 07:34 Lymph % (Auto) 5.6 % (20.0-40.0) L 02/07/18 07:34 [place] % (Auto) 1.6 % (0.0-10.0) 02/07/18 07:34 Eos % (Auto) 0.0 % (0.0-4.0) 02/07/18 07:34 Baso % (Auto) 0.1 % (0.0-2.0) 02/07/18 07:34 Neut # (Auto) 17.5 K/uL (1.8-7.0) H 02/07/18 07:34 Lymph # (Auto) 1.1 K/uL (1.0-4.3) 02/07/18 07:34 [place] # (Auto) 0.3 K/uL (0.0-0.8) 02/07/18 07:34 Eos # (Auto) 0.0 K/uL (0.0-0.7) 02/07/18 07:34 Baso # (Auto) 0.0 K/uL (0.0-0.2) 02/07/18 07:34 Neutrophils % (Manual) 96 % (50-75) H 02/07/18 07:34 Lymphocytes % (Manual) 3 % (20-40) L 02/07/18 07:34 Monocytes % (Manual) 1 % (0-10) 02/07/18 07:34 Platelet Estimate Normal (NORMAL) 02/07/18 07:34 D-Dimer, Quantitative 313 ng/mlDDU (0-243) H 02/05/18 22:00 Sodium 138 mmol/L (132-148) 02/07/18 07:34 Potassium 4.4 mmol/L (3.6-5.2) 02/07/18 07:34 Chloride 106 mmol/L (98-107) 02/07/18 07:34 Carbon Dioxide 22 mmol/L (22-30) 02/07/18 07:34 Anion Gap 14 (10-20) 02/07/18 07:34 BUN 16 mg/dL (7-17) 02/07/18 07:34 Creatinine 0.7 mg/dL (0.7-1.2) 02/07/18 07:34 Est GFR ( Amer) > 60 02/07/18 07:34 Est GFR (Non-Af Amer) > 60 02/07/18 07:34 Random Glucose 154 mg/dL (65-105) H 02/07/18 07:34 Calcium 8.4 mg/dl (8.6-10.4) L 02/07/18 07:34 Phosphorus 2.7 mg/dL (2.5-4.5) 02/07/18 07:34 Magnesium 2.0 mg/dL (1.6-2.3) 02/07/18 07:34 Total Bilirubin 0.4 mg/dL (0.2-1.3) 02/07/18 07:34 AST 21 U/L (14-36) 02/07/18 07:34 ALT 21 U/L (9-52) 02/07/18 07:34 Alkaline Phosphatase 40 U/L (38-126) 02/07/18 07:34 NT-Pro-B Natriuret Pep 35.1 pg/mL (0-450) 02/05/18 22:00 Total Protein 7.4 g/dL (6.3-8.3) 02/07/18 07:34 Albumin 3.7 g/dL (3.5-5.0) 02/07/18 07:34 Globulin 3.7 gm/dL (2.2-3.9) 02/07/18 07:34 Albumin/Globulin Ratio 1.0 (1.0-2.1) 02/07/18 07:34 Urine Color Yellow (YELLOW) 02/06/18 02:58 Urine Clarity Turbid (Clear) 02/06/18 02:58 Urine pH 5.0 (5.0-8.0) 02/06/18 02:58 Ur Specific [place] 1.028 (1.003-1.030) 02/06/18 02:58 Urine Protein 1+ mg/dL (NEGATIVE) H 02/06/18 02:58 Urine Glucose (UA) Normal mg/dL (Normal) 02/06/18 02:58 Urine Ketones Negative mg/dL (NEGATIVE) 02/06/18 02:58 Urine Blood Negative (NEGATIVE) 02/06/18 02:58 Urine Nitrate Negative (NEGATIVE) 02/06/18 02:58 Urine Bilirubin Negative (NEGATIVE) 02/06/18 02:58 Urine Urobilinogen Normal mg/dL (0.2-1.0) 02/06/18 02:58 Ur Leukocyte Esterase Neg Misa/uL (Negative) 02/06/18 02:58 Urine WBC (Auto) 6 /hpf (0-5) H 02/06/18 02:58 Urine RBC (Auto) 13 /hpf (0-3) H 02/06/18 02:58 Ur Squamous Epith Cells 46 /hpf (0-5) H 02/06/18 02:58 Urine Bacteria Few (<OCC) H 02/06/18 02:58 Granular Casts (Auto) 5 /lpf (0-1) 02/06/18 02:58 Urine HCG, Qual Negative (NEGATIVE) 02/06/18 02:58 - Hospital Course Hospital Course: CC: worsening asthma/ SOB HPI: Patient is a 32 y/o F with PMHx of asthma who presents today for shortness of breath and worsening asthma. About 3 days ago patient said she started getting congested with yellow sputum. Patient had no fevers or sore throat. Patient had to increase her use of Albuterol nebulizer treatments. Today patient used her Ventolin inhaler 9 times and could not get full relief so she decided to come to the ED. Patient has never been intubated for asthma. Patient uses her inhaler normally every day and coughs most nights. Patient denies any chest pain, abdominal pain, N/V, C/D. PMD: Dr. Koch Allergies: NKDA PMHx:asthma Psurg: IUD Famhx: Mom: HTN, Grandmother: Alzheimer's Psocial: stopped smoking cigarettes 7 years ago, smoked 1/2ppd for 10 years, drinks a few drinks every few months, stopped smoking marijuana 3 years ago lives with 2 roommates. works at a [employer] Hospital course: Patient was admitted on 02/06/18 for an asthma exacerbation and CAP. Labs were drawn and imaging taken; Chest xray showed no acute cardiopulmonary process seen. D-dimer was slightly elevated at 313/ CTA was ordered and showed no acute findings. Duonebs and solumedrol were started. Leukocytosis was noted on labs, which was likely secondary to lower lob pneumonia and solumedrol. Patient was started on antibiotics. Patient was seen and examined at bedside. Patient reports feeling better and no longer short of breath. Wheezing has improved. Patient's baseline peak flow is 250. Patient peak flow was measured pre treatment (250) and post treatment (300). Patient is stable for discharge with new medications: Advair diskus, singulair, and a zpak. Patient must follow up with PMD within one week. This is a brief summary of the hospital course. Please see EMR for complete details. Discharge Exam - Head Exam Head Exam: ATRAUMATIC, NORMAL INSPECTION, NORMOCEPHALIC - Eye Exam Eye Exam: EOMI, Normal appearance - ENT Exam ENT Exam: Mucous Membranes Moist - Respiratory Exam Respiratory Exam: Wheezes (mild, improved), NORMAL BREATHING PATTERN. absent: Rales, Rhonchi, Respiratory Distress - Cardiovascular Exam Cardiovascular Exam: REGULAR RHYTHM, +S1, +S2 - GI/Abdominal Exam GI & Abdominal Exam: Normal Bowel Sounds, Soft. absent: Distended, Firm, Guarding, Tenderness - Extremities Exam Extremities exam: normal inspection, pedal pulses present - Neurological Exam Neurological exam: Alert, Oriented x3 - Psychiatric Exam Psychiatric exam: Normal Affect, Normal Mood - Skin Skin Exam: Dry, Intact, Normal Color, Warm Discharge Plan - Discharge Medications Prescriptions: Azithromycin [Z-Keagan] 250 mg PO ASDIR #6 tab Fluticasone/Salmeterol 250/50 [Advair Diskus 250/50] 1 puff INH RQ12 #1 inh Montelukast [Singulair] 10 mg PO HS #30 tab - Follow Up Plan Condition: STABLE Disposition: HOME/ ROUTINE Additional Instructions: Patient is stable for discharge to home. Patient must continue home medications. Patient must start new medication as prescribed: 1. Advair Diskus 250/50 INH BID- inhale 1 puff twice a day 2. Singulair 10mg PO HS- take 1 tablet at night daily 3. Z-Keagan- take as directed Patient educated on proper use of asthma medications (Advair and singulair to be used daily; Ventolin and nebulizer to be use prn/as needed). Patient must follow up with PMD, Dr. Koch, within 1 week of discharge. If symptoms worsen or reoccur, patient should return to the ED.
[2018-02-07] MEDS ORDERED: Pneumococcal 23-Valent Vaccine IM ONE (15:45)
[2018-02-07] MEDS ORDERED: Influenza Vaccine 60 mcg/0.5 mL SYR (4YR UP) IM ONE (15:45)
== END 2018-02-07 16:37 | disposition home or self-care (01) | DRG 588 ==
LOC: C.ER 21:31 → C.6T 02-06 02:11 → C.3T 02-06 03:19
PROVIDERS: ADMIT Internal Medicine; ATTEND Internal Medicine
DX: J45.901 Unspecified asthma with (acute) exacerbation (principal); J18.9 Pneumonia, unspecified organism; Z87.891 Personal history of nicotine dependence; Z68.41 Body mass index [BMI] 40.0-44.9, adult

== ENCOUNTER 2018-04-02 01:59 | Emergency (ER) | payer MEDICAID ==
[2018-04-02 01:59] VITALS: BMI 44.9
[2018-04-02] MEDS ORDERED: Albuterol-Ipratrop 3 mg / 0.5 (3 ml) UD ONE ×3 (02:06→03:59)
[2018-04-02] MEDS ORDERED: Albuterol-Ipratrop 3 mg / 0.5 (3 ml) UD INH STA ×3 (02:12→02:13)
--- NOTE | 2018-04-02 02:17 | C.PDOC ---
History Of Present Illness 32 year old female with PMHx of asthma presents to the ED c/o wheezing, SOB productive cough with white sputum. Patient denies CP, palpitations, fever, chills, nausea, vomit, diarrhea, back pain. Chief Complaint (Nursing): Respiratory Distress History Per: Patient History/Exam Limitations: no limitations Onset/Duration Of Symptoms: Days Current Symptoms Are (Timing): Still Present Initiating Event: Upper Respiratory Illness Quality: "Pain" Exacerbating Factor(s): Coughing Current Respiratory Medications: See Home Med List Associated Symptoms: Productive Cough Recent travel outside of the [place]: No Additional History Per: Patient Past Medical History Reviewed: Historical Data, Nursing Documentation, Vital Signs Vital Signs: Last Vital Signs Temp 98.8 F 04/02/18 02:07 Pulse 89 04/02/18 02:07 Resp 32 H 04/02/18 02:07 BP 151/98 H 04/02/18 02:07 Pulse Ox 95 04/02/18 04:09 - Medical History PMH: Asthma Denies: Chronic Kidney Disease Surgical History: No Surg Hx Family History: States: Unknown Family Hx - Social History Hx Tobacco Use: Yes (quit smoking 5 years ago) Hx Alcohol Use: Yes Hx Substance Use: No - Immunization History Hx Influenza Vaccination: No Hx Pneumococcal Vaccination: No Review Of Systems Constitutional: Negative for: Fever, Chills Cardiovascular: Negative for: Chest Pain Respiratory: Positive for: Cough, Shortness of Breath, Sputum Gastrointestinal: Negative for: Nausea, Vomiting Skin: Negative for: Rash Neurological: Negative for: Headache, Dizziness Physical Exam - Physical Exam Appears: Non-toxic, In Acute Distress Skin: Normal Color, Warm, Dry Head: Atraumatic, Normacephalic Eye(s): bilateral: Normal Inspection Nose: No Discharge Oral Mucosa: Moist Throat: Normal, No Erythema, No Exudate Neck: Normal ROM, Supple Chest: Symmetrical Cardiovascular: Rhythm Regular, No Murmur Respiratory: No Rales, Rhonchi (B/L), Wheezing (B/L ), Other (moderate dyspnic) Gastrointestinal/Abdominal: Soft, No Tenderness, No Guarding, No Rebound Extremity: Normal ROM, No Tenderness, No Swelling Neurological/Psych: Oriented x3, Normal Speech, Normal Motor, Normal Sensation Gait: Steady ED Course And Treatment ECG: Interpreted By Me, Viewed By Me ECG Rhythm: Sinus Rhythm ECG Interpretation: Normal, No Acute Changes Interpretation Of ECG: NSR, normal tracings. Rate From EC O2 Sat by Pulse Oximetry: 95 (ON RA) Pulse Ox Interpretation: Normal - Radiology CXR: Interpreted by Me CXR Interpretation: Yes: No Acute Disease. No: Infiltrates Medical Decision Making Medical Decision Making: Impression: SOB Plan: * EKG * CXR * Duoneb 3 ml INH * Solumedrol 125 mg IVP Disposition Counseled Patient/Family Regarding: Diagnosis - Disposition Referrals: Non [facility] Provider, [Primary Care Provider] - Disposition: HOME/ ROUTINE Disposition Time: 04:05 Condition: STABLE Prescriptions: Albuterol/Ipratropium [Duoneb 3 MG/3 Ml-0.5 MG/3 Ml 3 Ml] 1 ea IH Q6 #20 neb Methylprednisolone [Medrol Dose Pack (21 tabs)] 4 mg PO DAILY #21 mg Instructions: Asthma in Adults Forms: [facility] (Yi) - POA Present On Arrival: None - Clinical Impression Clinical Impression: Asthma - Scribe Statement The provider has reviewed the documentation as recorded by the Scribe Gilbert Lopes All medical record entries made by the Scribe were at my direction and personally dictated by me. I have reviewed the chart and agree that the record accurately reflects my personal performance of the history, physical exam, medical decision making, and the department course for this patient. I have also personally directed, reviewed, and agree with the discharge instructions and disposition.
[2018-04-02 04:48] VITALS: BP 149/70; PULSE 81; RESP 20; TEMP 97.8; O2SAT 98
--- NOTE | 2018-04-02 08:49 | RAD ---
HISTORY: SOB COMPARISON: Chest radiograph dated 02/05/2018 TECHNIQUE: Chest PA and lateral FINDINGS: LUNGS: No active pulmonary disease. PLEURA: No significant pleural effusion identified. No pneumothorax apparent. CARDIOVASCULAR: Normal. OSSEOUS STRUCTURES: No significant abnormalities. VISUALIZED UPPER ABDOMEN: Normal. OTHER FINDINGS: None. IMPRESSION: No active disease.
--- NOTE | 2018-04-03 22:39 | CARD ---
APPROVED REPORT EKG Measurement Heart [id number] <Conclusion> Normal sinus rhythm Poor R wave progression - may be normal variant Borderlinel ECG
== END 2018-04-02 04:49 | disposition home or self-care (01) ==
LOC: SUPCPDRO 01:59 → C.ER 01:59
DX: J45.909 Unspecified asthma, uncomplicated (principal); Z87.891 Personal history of nicotine dependence
CPT/HCPCS: 71046; 93005; 94640; 96374; 99283; J2930